=== PATIENT | male | born 2000 | race Caucasian/White ===

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

== ENCOUNTER 2022-10-01 03:03 | Emergency (ER) | payer OTHER, BC ==
[2022-10-01] MEDS ORDERED: Morphine 4 MG/ML VIAL ONE (03:27)
[2022-10-01] MEDS ORDERED: Ondansetron PF 4 MG/2 ML Vial ONE (03:27)
== END 2022-10-01 05:29 | disposition home or self-care (01) ==
LOC: ERS 03:03
DX: S06.0X0A Concussion without loss of consciousness, initial encounter (principal); Y04.8XXA Assault by other bodily force, initial encounter
CPT/HCPCS: 70450; 70486; 72125; 96374; 96375; J2270; J2405